=== PATIENT | female | born 1950 | race Hispanic/Latino ===

== ENCOUNTER 2017-10-31 16:37 | Emergency (ER) | payer MEDICARE, OTHER ==
[2017-10-31 18:58] LABS: Basophils # (Auto) 0.1 K/mm3 (0.0-0.1); Basophils % (Auto) 0.7 % (0.0-1.8); Eosinophils # (Auto) 0.2 K/mm3 (0.0-0.4); Eosinophils % (Auto) 2.4 % (0.0-4.3); Hematocrit 41.7 % (30.3-42.9); Lymphocytes # (Auto) 1.9 K/mm3 (1.2-5.4); Lymphocytes % (Auto) 24.9 % (13.4-35.0); Mean Corpuscular HGB Conc 34 % (30-34); Mean Corpuscular Hemoglobin 30 pg (28-32); Mean Corpuscular Volume 91 fl (79-97); Monocytes # (Auto) 0.7 K/mm3 (0.0-0.8); Monocytes % (Auto) 8.5 % (0.0-7.3); Platelet Count 242 K/mm3 (140-440); Red Blood Count 4.61 M/mm3 (3.65-5.03); Red Cell Distribution Width 14.2 % (13.2-15.2)
[2017-10-31 19:17] LABS: BUN/Creatinine Ratio 23; Blood Urea Nitrogen 14 mg/dL (7-17); Calcium 8.8 mg/dL (8.4-10.2); Hemolysis Index 11
[2017-10-31 22:43] VITALS: BP 148/58
[2017-11-01] MEDS ORDERED: LOVENOX SUB-Q ONE (01:15)
--- NOTE | 2017-11-01 01:15 | Emergency Department Report ---
HPI - General Chief Complaint: Extremity Problem,Nontraumatic Time Seen by Provider: 11/01/17 01:12 - HPI HPI: This is a 67-year-old female presents to the emergency department with complaint of left lateral thigh and/or leg pain that started around noon today all of a sudden. She denies any trauma, any new exercise regimen, or any instance where she may have twisted or sprained it. She denies any skin color change or rash or bruising. She has not taken anything for her symptoms prior to presentation. She has a past medical history of hypertension. The patient lives in [place] but is spending multiple months in [place] training for her job. 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 She has a primary care physician back home in [place]. ED Past Medical Hx - Past Medical History Hx Hypertension: Yes - Surgical History Past Surgical History?: No - Social History Smoking Status: Never Smoker Substance Use Type: None ED Review of Systems ROS: Stated complaint: PIAN IN LEFT THIGH Other details as noted in HPI Comment: All other systems reviewed and negative Constitutional: denies: chills, fever Eyes: denies: eye pain, eye discharge, vision change ENT: denies: ear pain, throat pain Respiratory: denies: cough, shortness of breath, wheezing Cardiovascular: denies: chest pain, palpitations Gastrointestinal: denies: abdominal pain, nausea, diarrhea Genitourinary: denies: urgency, dysuria, discharge Musculoskeletal: myalgia. denies: joint swelling Skin: denies: rash, lesions Neurological: denies: headache, weakness, paresthesias Physical Exam - Physical Exam Vital Signs: Vital Signs 10/31/17 10/31/17 17:11 22:42 Temperature 97.8 F 98 F Pulse Rate 82 80 Respiratory 16 16 Rate Blood Pressure 158/78 Blood Pressure 148/58 [Left] O2 Sat by Pulse 97 98 Oximetry Physical Exam: GENERAL: The patient is well-developed well-nourished. HENT: Normocephalic. Atraumatic. Patient has moist mucous membranes. EYES: Extraocular motions are intact. Pupils equal reactive to light bilaterally. NECK: Supple. Trachea is midline. CHEST/LUNGS: Clear to auscultation. There is no respiratory distress noted. HEART/CARDIOVASCULAR: Regular. There is no tachycardia. There is no murmur. ABDOMEN: Abdomen is soft, nontender. Patient has normal bowel sounds. SKIN: Skin is warm and dry. NEURO: The patient is awake, alert, and oriented. The patient is cooperative. The patient has no focal neurologic deficits. The patient has normal speech. MUSCULOSKELETAL: There is some reproducible tenderness palpation to the left lateral mid thigh but no obvious deformity. There is no limitation range of motion. ED Course Vital Signs 10/31/17 10/31/17 17:11 22:42 Temperature 97.8 F 98 F Pulse Rate 82 80 Respiratory 16 16 Rate Blood Pressure 158/78 Blood Pressure 148/58 [Left] O2 Sat by Pulse 97 98 Oximetry ED Medical Decision Making - Lab Data Result diagrams: 10/31/17 18:48 10/31/17 18:48 - Medical Decision Making Patient has some spontaneous atraumatic left thigh pain. No rash and no obvious deformity. She did not want any x-ray done as there was no trauma. However secondary to her job working for [employer] a DVT needs to be ruled out. Since it is the evening time and we cannot get vascular Dopplers done, the patient was given a dose of Lovenox and will be given an order and set up to get the left lower extremity venous Doppler done as outpatient imaging. She understands that the Levaquin increases her chance of bleeding and we discussed precautions to take. If the venous Doppler is positive, she will be redirected to the emergency department. If negative, she has been given a referral for an orthopedist. - Differential Diagnosis strain, DVT, occult fracture, malignancy Critical Care Time: No Critical care attestation.: If time is entered above; I have spent that time in minutes in the direct care of this critically ill patient, excluding procedure time. ED Disposition Clinical Impression: Acute thigh pain Qualifiers: Laterality: left Qualified Code(s): M79.652 - Pain in left thigh Disposition: DC-01 TO HOME OR SELFCARE Is pt being admited?: No Condition: Stable Instructions: Arthralgia (ED) Additional Instructions: You have been given a prescription/order to have a left leg venous Doppler ultrasound to rule out a blood clot as the source of your thigh pain. Call the phone number on your discharge paperwork tomorrow morning to set herself up for an appointment time for the outpatient imaging center. If positive, he will be redirected back to the emergency department. If negative, I have given you a referral for a local orthopedist, Dr. Esqueda. He can take Tylenol and/or ibuprofen for your discomfort. You received 1 dose of Lovenox this evening which is a blood thinner. Please be careful not to have any falls, trauma, hit your head as temporarily you are more prone to bleeding. Return to the emergency Department with any worsening of your symptoms or any acute distress. Referrals: REGINA ESQUEDA MD [Staff Physician] - 3-5 Days Time of Disposition: 01:17
== END 2017-11-01 01:41 | disposition home or self-care (01) ==
LOC: ED 16:37
DX: M79.652 Pain in left thigh (principal); I10 Essential (primary) hypertension
CPT/HCPCS: 36415; 80048; 85025; 96372; 99283; J1650

== ENCOUNTER 2017-11-01 12:51 | Outpatient (CLI) | payer MEDICARE, OTHER ==
--- NOTE | 2017-11-02 08:46 | Vascular Lab Report ---
Left Lower Extremity Venous Duplex Study: Reason for Exam: Pain of the left lower extremity. Comments on the Right: A limited duplex study was done of the proximal veins of the right lower extremity. All veins visualized are freely compressible without evidence of internal echogenicity. Flow is spontaneous and phasic throughout. No evidence of acute or chronic thrombus is seen in any of the vessels visualized. Comments on the Left: All veins visualized are freely compressible without evidence of internal echogenicity. Flow is spontaneous and phasic throughout. No evidence of acute or chronic thrombus is seen in any of the vessels visualized. Impression: No evidence of acute or chronic deep venous thrombosis in the left lower extremity.
== END 2017-11-01 12:52 | disposition home or self-care (01) ==
LOC: VAS 12:51
PROVIDERS: ATTEND Internal Medicine
DX: M79.662 Pain in left lower leg (principal)